=== PATIENT | female | born 1965 | race Caucasian/White ===

== ENCOUNTER 2022-05-12 01:57 | Emergency (ER) | payer MEDICAID ==
[~2022-05-12] VITALS: Ht 160 cm; Wt 72.6 kg
[2022-05-12 02:07] VITALS: BP_SYST 111
[2022-05-12] MEDS ORDERED: IBUPROFEN 800 MG TABLET PO ONE (02:30)
[2022-05-12] MEDS ORDERED: GABAPENTIN 300 MG CAPSULE PO ONE (02:30)
[2022-05-12 04:01] VITALS: BP_SYST 125
== END 2022-05-12 04:50 | disposition home or self-care (01) ==
LOC: SED 01:57
DX: S13.4XXA Sprain of ligaments of cervical spine, initial encounter (principal); M25.531 Pain in right wrist; M25.532 Pain in left wrist; Z79.899 Other long term (current) drug therapy; Y04.8XXA Assault by other bodily force, initial encounter; Y93.89 Activity, other specified; Y92.89 Other specified places as the place of occurrence of the external cause; Y99.8 Other external cause status
CPT/HCPCS: 72040-TC; 99284